=== PATIENT | male | born 1995 | race African-American/Black ===

== ENCOUNTER 2017-11-15 12:30 | Day surgery (SDC) | payer OTHER ==
--- NOTE | 2017-11-15 13:49 | RAD ---
INDICATION: Testicular pain and swelling COMPARISON: None TECHNIQUE: Duplex interrogation of the scrotum was performed. FINDINGS: Testicles: The right testis is normal in size measuring 4.2 x 2.6 x 3.1 cm. The testicle is diffusely heterogeneous with overall decreased attenuation suggesting edema. There is underlying testicular microlithiasis in the multiple testicular cysts. Doppler interrogation shows findings of torsion. The left testis is normal in size. As on the right there is evidence of testicular microlithiasis and there are multiple testicular cysts. There is flow on Doppler interrogation perhaps with hyperemia. Epididymides: There is a 1 cm right-sided epididymal cyst. The right epididymal head measures 1.9 x 2.1 cm and the left 1.2 x 1.6 cm. There appears to be bilateral hyperemia. Hydroceles: None. Varicoceles: Left-sided varicoceles. Other: Scrotal edema. IMPRESSION: 1. Right-sided testicular torsion with edematous appearing testis. 2. 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 3. Right-sided epididymal cyst. 4. Scrotal edema Findings discussed with emergency department immediately following the examination.
[2017-11-15 14:10] LABS: ABS Basophils 0 10^3/ul (0-0.2); ABS Eosinophils 0.1 10^3/ul (0-0.6); ABS Lymphocytes 1.6 10^3/ul (1.0-4.8); ABS Monocytes 0.7 10^3/ul (0-0.8); ABS Neutrophils 5.3 10^3/ul (1.5-7.7); ABS Nucleated RBC 0 10^3/ul; Eosinophil % 0.9 % (0-6); Hematocrit 44 % (42-52); Hemoglobin 14.8 g/dl (14.0-18.0); Lymphocyte % 21.3 % (25-47); Mean Corpuscular HGB Conc 34 g/dl (31-36); Mean Corpuscular Hemoglobin 30 pg (27-31); Mean Corpuscular Volume 89 fL (80-94); Mean Platelet Volume 9 um3 (7.4-10.4); Nucleated Red Blood Cells % 0.1; Platelet Count 146 10^3/ul (150-450); Red Blood Count 4.92 10^6/ul (4.0-5.4); Red Cell Distribution Width 14 % (10.5-15); White Blood Count 7.7 10^3/ul (3.5-10.8)
[2017-11-15 14:18] LABS: Urine Appearance Cloudy; Urine Blood Negative (Negative); Urine Color Amber; Urine Ketones Negative (Negative); Urine Protein 1+(30 mg/dL) (Negative); Urine Specific Gravity 1.029 (1.010-1.030); Urine Urobilinogen Negative (Negative)
[2017-11-15 14:26] LABS: EGFR Non-African American 109.7 (>60)
--- NOTE | 2017-11-15 14:38 | ED ---
Silverio Harden Jennifer, scribed for Kimo Mariano MD on 11/15/17 at 1334 . GI/ HPI - HPI Summary HPI Summary: The patient is a 22 year old male who presents with testicular pain and swelling that began one week ago. The patient describes that this has never happened before. He complains of dysuria. The patient denies fever, chills, and penile discharge. He denies any recent injury. - History of Current Complaint Chief Complaint: EDUrogenitalProblems Stated Complaint: TESTICULAR TENDERNESS Hx Obtained From: Patient Onset/Duration: Started Weeks Ago - one week, Still Present Timing: Constant Severity: Severe Current Severity: Severe Pain Intensity: 10 Additional Locations for Males: Testicles Associated Signs and Symptoms: Positive: Other: - Dysuria. NEGATIVE: fever, chills, discharge. Additional Signs & Symptoms: Negative: Penile Discharge Aggravating Factor(s): Nothing Alleviating Factor(s): Nothing - Allergy/Home Medications Allergies/Adverse Reactions: Allergies Allergy/AdvReac Type Severity Reaction Status Date / Time No Known Allergies Allergy Verified 11/15/17 13:58 Home Medications: Home Medications NK [No Home Medications Reported] 11/15/17 [History Confirmed 11/15/17] PMH/Surg Hx/FS Hx/Imm Hx Endocrine/Hematology History: Denies: Hx Diabetes Cardiovascular History: Denies: Hx Hypertension Infectious Disease History: No Infectious Disease History: Denies: Traveled Outside the [place] in Last 30 Days - Family History Known Family History: Positive: Diabetes Negative: Hypertension - Social History Smoking Status (MU): Smoker, Current Status Unknown Review of Systems Negative: Fever, Chills Positive: dysuria, other - Testicular swelling and pain All Other Systems Reviewed And Are Negative: Yes Physical Exam - Summary Physical Exam Summary: Appearance: Well-appearing, Well-nourished Skin: Warm, Dry, No rash Eyes: Normal, PERRL, EOMI, sclera anicteric ENT: Normal Neck: Supple, nontender Respiratory: Clear to auscultation Cardiovascular: S1, S2, no murmur, no rub, no gallop Abdomen: Soft, nontender, no organomegaly Bowel sounds: Present Genitourinary: bilateral testicular swelling, pain, and redness. No discharge or abscess. Testicles very tender to the touch. Musculoskeletal: Normal, Strength/ROM Intact, no edema, pulses symmetrical Neurological: Normal, A&Ox3, cranial nerves II-XII WNL, follows commands, gait not tested, sensation intact to pin and light touch Psychiatric: affect normal, behavior appropriate, dressed appropriately, judgment intact Triage Information Reviewed: Yes Vital Signs On Initial Exam: Initial Vitals Temp Pulse Resp BP Pulse Ox 98.4 F 62 16 112/45 97 11/15/17 12:39 11/15/17 12:39 11/15/17 12:39 11/15/17 12:39 11/15/17 12:39 Vital Signs Reviewed: Yes Diagnostics - Vital Signs Vital Signs Temp Pulse Resp BP Pulse Ox 11/15/17 12:39 98.4 F 62 16 112/45 97 - Laboratory Result Diagrams: 11/15/17 14:00 11/15/17 14:00 Lab Statement: Any lab studies that have been ordered have been reviewed, and results considered in the medical decision making process. - Additional Comments Diagnostic Additional Comments: Testicular Ultrasounds taken at 12:41. IMPRESSION: 1. Right-sided testicular torsion with edematous appearing testis. 2. 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 3. Right-sided epididymal cyst. 4. Scrotal edema Dr. Mariano has reviewed this report. GIGU Course/Dx - Course Assessment/Plan: Bloodwork and urinalysis were obtained. Testicular Ultrasound showed 1. Right-sided testicular torsion with edematous appearing testis. 2. 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 3. Right- sided epididymal cyst. 4. Scrotal edema. The patient is diagnosed with testicular torsion. He was admitted to [facility] [place]. - Diagnoses Provider Diagnoses: Testicular torsion - Physician Notifications Discussed Care Of Patient With: Angel Almonte Time Discussed With Above Provider: 01:45 Instructed by Provider To: Other - Informed Dr. Almonte, urologist, of the testicular torsion. Discharge - Discharge Plan Condition: Good Disposition: ADMITTED TO [facility] Referrals: Danny CANTRELL,Paz Aguero [Primary Care Provider] - The documentation as recorded by the Silverio seymour Jennifer accurately reflects the service I personally performed and the decisions made by me, Kimo Mariano MD.
[2017-11-15] MEDS ORDERED: Lidocaine 1% INJ* 10 MG/ML 30 ML SDV ONE (15:50)
[2017-11-15] MEDS ORDERED: ceFAZolin 2 GM in 100 MLS NS (*) BAG IVPB ONE (16:05)
[2017-11-15] MEDS ORDERED: fentaNYL* 50 MCG/ML 2 ML VIAL (100 MCG VIAL) ONE ×3 (16:22→19:13)
[2017-11-15] MEDS ORDERED: DiMENhydriNATE IV* 50 MG/ML VIAL IV PUSH PRN (16:43)
[2017-11-15] MEDS ORDERED: Ketorolac INJ* 30 MG/ML 1 ML VIAL IV PRN (16:43)
[2017-11-15] MEDS ORDERED: Naloxone* 0.4 MG/ML 1 ML VIAL IV PRN (16:43)
[2017-11-15] MEDS ORDERED: Propofol* 10 MG/ML 20 ML BTL IV PUSH ONE (17:15)
[2017-11-15] MEDS ORDERED: Lidocaine 2% PF * 5 ML VIAL ONE (17:15)
[2017-11-15] MEDS ORDERED: Ketorolac INJ* 30 MG/ML 1 ML VIAL ONE (17:58)
[2017-11-15] MEDS: fentaNYL* 50 MCG/ML 2 ML VIAL (100 MCG VIAL) IV PRN ×3 (18:01→19:15)
[2017-11-15] MEDS ORDERED: oxyCODONE/Acetamin 5/325 MG* TAB ONE ×2 (19:13→19:54)
[2017-11-15] MEDS: oxyCODONE/Acetamin 5/325 MG* TAB PO PRN ×2 (19:14→19:55)
[2017-11-15 20:18] VITALS: BP 117/56
--- NOTE | 2017-11-16 12:49 | OP ---
CC: [place], [place] OPERATIVE REPORT: DATE OF OPERATION: 11/15/17 DATE OF : 89 SURGEON: Charles Alfaro MD RECREATION ENGINEER: Dr. Almonte. ANESTHESIOLOGIST: Dr. Mohan Newman. ANESTHESIA: General. PRE-OP DIAGNOSES: 1. Right testicular torsion. 2. Infarcted right testis. POST-OP DIAGNOSES: 1. Infarcted right testis. 2. Partial torsion of the left testis. OPERATIVE PROCEDURE: 1. Bilateral scrotal exploration. 2. Right orchiectomy. 3. Internal fixation of left testis. INDICATION FOR PROCEDURE: Mr. Spangler is a 22-year-old who is an inmate at the [facility], and who 10 days ago noted right scrotal pain. The pain has been persistent, had gotten worse over the last 10 days. He was brought into the emergency room around 1 p.m. today. He was evaluated and had a scrotal ultrasound which showed an enlarged edematous right testis with no blood flow by Doppler. The left testis looked normal. There was some microlithiasis in the left testis, but no testicular masses. Good blood flow to the Lt testis. On pre-op physical examination, there was diffuse edema and hyperemia of the right hemiscrotum. There was also diffuse swelling of the right testis which was tender and retracted to the upper Rt hemiscrotum . There was loss of the landmarks of the right scrotum. The left testis felt normal. Because of the above history and finding, the patient is taken to the operating room on an urgent basis for bilateral scrotal exploration. PATHOLOGY: Exam under anesthesia showed that the right testis is markedly enlarged and edematous is located in the upper right hemiscrotum. The left testis felt normal in a normal position. There was significant degree of edema and hyperemia of the scrotal skin. Right scrotal exploration showed a completely infarcted right testis. Incision of the tunica albuginea of the right testis showed infarcted tissue and no fresh blood oozing from it. The site of the torsion was at the junction between the spermatic cord and the testis. Upon left scrotal exploration, the left testis had a crow clapper deformity. There was a 90 degrees partial clockwise torsion of the left spermatic cord. The testis, however, looked normal and there was no edema and no testicular masses. The epididymis and the vas deferens looked normal. DESCRIPTION OF PROCEDURE: With the patient in the supine position. under general anesthesia. and after proper scrubbing and draping, an incision was carried in the median raphe of the anterior scrotum. The right scrotal compartment was entered. The right testis was delivered through the incision and was inspected. It looks totally infarcted. An incision was then carried in the tunica albuginea and there was no normal testicular tissue and only infarcted tissue seen. There was oozing of old dark blood and no arterial blood. That confirmed the infarcted nature of the testis. An orchiectomy was then performed by dividing the spermatic cord in between clamps. The stump of the spermatic cord were then double ligated with suture ligatures of 2- 0 Vicryl. The left scrotal compartment was then entered. The tunica vaginalis was opened and the testis was delivered through the incision and the above pathology was noted. The intrascrotal septum was then held in between Allis clamps. The left testis was then placed in a vertical axis making sure there was no twisting of the cord. Two fixation sutures of 4-0 Prolene were taken in the medial aspect of the tunica albuginea. These sutures were then taken through the intrascrotal septum and back into the left scrotal cavity. The testis was then replaced in the left scrotal cavity. The fixation sutures were then tied. A third fixation suture was then taken on the lateral aspect of the left testis between the tunica albuginea and the adjacent tunica vaginalis. There was very good hemostasis. The scrotal cavity was thoroughly irrigated with saline. The left tunica vaginalis was then closed using interrupted sutures of 4-0 Monocryl. Good hemostasis was achieved in the right scrotal cavity. The scrotal incision was then closed approximating the dartos muscle to the intrascrotal septum using interrupted sutures of 3-0 chromic. The skin was then closed using 4-0 Monocryl. The patient tolerated the procedure well and left the operating room in good condition. The blood loss was negligible. The specimen was infarcted right testis. All the counts were correct. [id number]/[facility] #: [id number] [facility]
== END 2017-11-15 20:24 ==
LOC: ED 12:30 → OR 14:53
PROVIDERS: ATTEND Urology
DX: N50.1 Vascular disorders of male genital organs (principal); N44.00 Torsion of testis, unspecified; R30.0 Dysuria; F17.200 Nicotine dependence, unspecified, uncomplicated
CPT/HCPCS: 36415; 76870; 80053; 81003; 81015; 85025; 87491; 87591; 88305; 99283; A9270-GY; J1885; J2704; J3010